=== PATIENT | male | born 1965 | race Caucasian/White ===

== ENCOUNTER 2022-03-22 08:04 | Day surgery (SDC) | payer OTHER ==
[2022-03-19 09:07] VITALS: BMI 27.9
[2022-03-22] MEDS ORDERED: PROPOFOL 20 ML ONE ×3 (08:27)
[2022-03-22 09:27] VITALS: TEMP 96.8
[2022-03-22 09:52] VITALS: BP 122/81; PULSE 68
[2022-03-22 10:01] VITALS: RESP 22
== END 2022-03-22 09:40 | disposition home or self-care (01) ==
LOC: FASU-ENDO 08:04
PROVIDERS: ATTEND Internal Medicine Gastroenterology
PROC: 0DJD8ZZ Inspection of Lower Intestinal Tract, Via Natural or Artificial Opening Endoscopic (ICD-10-PCS; principal; 2022-03-22 08:43)
DX: R10.9 Unspecified abdominal pain (principal); R93.3 Abnormal findings on diagnostic imaging of other parts of digestive tract